=== PATIENT | female | born 1975 | race African-American/Black ===

== ENCOUNTER 2017-06-09 17:02 | Emergency (ER) | payer OTHER, MEDICAID, SELFPAY | END 2017-06-09 20:28 | disposition home or self-care (01) | PROVIDERS: Emergency Provider Internal Medicine; Family Provider Family Medicine; PCP Family Medicine; Visit Provider Internal Medicine | DX: R51 Headache (principal); E87.6 Hypokalemia; G50.0 Trigeminal neuralgia | CPT/HCPCS: 36415; 70450; 80053; 85025; 86140; 93005; 93010; 99058; 99284 ==

== ENCOUNTER 2017-07-23 00:34 | Emergency (ER) | payer OTHER, MEDICAID, SELFPAY ==
[2017-07-23 00:53] VITALS: BP 157/10; PULSE 96; RESP 18; TEMP 37.2; O2SAT 99; BMI 29.7
--- NOTE | 2017-07-23 01:05 | ED.EXTPRO ---
HPI - Extremity Problem General Chief complaint: Extremity Problem,Nontraumatic Stated complaint: Rt left pain/redness/pain sgy [id number] fever Time Seen by Provider: 07/23/17 00:39 Source: patient Mode of arrival: ambulatory Limitations: no limitations History of Present Illness HPI Narrative: Patient here for evaluation of right leg pain. She states that she had a biopsy performed on a ?mass? on her right thigh on the of this month by Dr. Weiss at [facility] in [place]. She does not know what was biopsied. She states she does not know whether was a bone biopsy or a muscle biopsy. She states that she was told that her doctors do not think that it is cancerous. She states that she has had pain in her right thigh since the procedure but it did get worse yesterday. She states she is taking ibuprofen and Tylenol. Did have pain medication for short time afterwards but is now out of that medicine. She states that she called the [facility] [place] who told her to come to the emergency department ?to get checked out ? Related Data Home Medications Medication Instructions Recorded Confirmed azithromycin [Zithromax] #0 01/08/16 oxycodone-acetaminophen [Percocet] #0 01/08/16 ibuprofen 800 mg PO TID PRN 07/23/17 07/23/17 Previous Rx's Medication Instructions Recorded lorazepam 0.5 mg PO SEE INSTRUCTIONS #1 tab 05/14/17 amlodipine 10 mg PO QDAY #30 tab 05/18/17 oxycodone-acetaminophen [Endocet] 1 tab PO Q4HP PRN #6 tab 06/09/17 potassium chloride 10 meq PO Q DAY #5 cap 06/09/17 Allergies Allergy/AdvReac Type Severity Reaction Status Date / Time PCN Allergy Mild Uncoded 07/23/17 01:11 Review of Systems Constitutional Denies chills, Denies fatigue and Reports fever(s) (?Low-grade fevers ?she does not have a thermometer at home) Cardiovascular Denies dyspnea and Denies dyspnea on exertion Respiratory Denies cough, Denies dyspnea, Denies dyspnea on exertion and Denies wheezing Musculoskeletal Comments: Right thigh pain Integumentary/Breasts Comments: Surgical wound right thigh Neurologic Comments: No numbness tingling right lower extremity Endocrine Denies fatigue Hematologic/Lymphatic Denies easy bruising Allergic/Immunologic Denies wheezing PFSH Surgical History Status post hysterectomy Family History Father Age: 62 Heart disease Mother Age: 62 Hypertension Grandmother Cancer Social History number of children: 2 household members: spouse and children pets and animals: No education level: college seatbelt use: always helmet use: Yes water heater temp set < 120 deg: Yes working smoke detector in home: Yes fire extinguisher in home: Yes Smoking Status: Never smoker alcohol intake: never substance use type: does not use caffeine: Yes (Rare) frequency: 1-2 times per week duration: 30-45 minutes/day additional social history: 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 Has surrounding bruising however no redness. No drainage. No signs of infection. Neuro Other: Sensation intact to light touch right lower extremity Extrem Other: Patient with soft thigh compartments. Is tender to palpation over the surgical site and over the anterior thigh. Course Orders Ordered: Discontinued Medications Oxycodone/Acetaminophen (Endocet 5/325 Prepack) 1 bottle MISC SEEINSTR ONE Stop: 07/23/17 01:12 Vital Signs - 8 hr 07/23/17 00:53 Temperature 99 F Pulse Rate 96 H Respiratory Rate 18 Blood Pressure 157/10 H Pulse Oximetry 99 MDM - Extremity (Nontraumatic) MDM Narrative Medical decision making narrative: Patient surgical site appears well. Appears appropriate for this point after a procedure. No signs of infection. Thigh compartments are soft. Patient states that she feels good that the site looks well. We did discuss her pain regimen. Will send home with a few pain pills for her to take at night. She is going to continue the ibuprofen and Tylenol during the day. She is instructed she needed to contact her operative provider tomorrow. She does have a follow-up with him on Wednesday of next week. She was given return precautions. She expressed understanding and agreement with plan Discharge Plan Departure Patient Disposition: Home, Self-Care Clinical Impression: Post-operative pain Instructions: DI for Postoperative Pain Activity Restrictions/Additional Instructions: Follow all postoperative instructions given to you by your surgeon. Call your surgeon's office tomorrow to discuss whether not they want to see you before your appointment on Wednesday. Take the medication likely discussed. Return to the emergency department for any new or worsening symptoms Prescriptions: No Action oxycodone-acetaminophen [Percocet] 5 MG/325 MG tablet Qty: 0 RF: 0 azithromycin [Zithromax] 250 MG tablet Qty: 0 RF: 0 lorazepam 0.5 MG tablet 0.5 mg PO SEE INSTRUCTIONS Qty: 1 RF: 0 amlodipine 10 MG tablet 10 mg PO QDAY Qty: 30 RF: 2 potassium chloride 10 MEQ capsule, extended release 10 meq PO Q DAY Qty: 5 RF: 0 oxycodone-acetaminophen [Endocet] 5 MG/325 MG tablet 1 tab PO Q4HP PRNQty: 6 RF: 0 ibuprofen 800 mg Tablet 800 mg PO TID PRN (Reason: Breakthrough Pain, Moderate) RF: 0
--- NOTE | 2017-07-23 01:10 | ED_ITS ---
HPI - Extremity Problem General Chief complaint: Extremity Problem,Nontraumatic Stated complaint: Rt left pain/redness/pain sgy [id number] fever Time Seen by Provider: 07/23/17 00:39 Source: patient Mode of arrival: ambulatory Limitations: no limitations History of Present Illness HPI Narrative: Patient here for evaluation of right leg pain. She states that she had a biopsy performed on a ?mass? on her right thigh on the of this month by Dr. Weiss at [facility] in [place]. She does not know what was biopsied. She states she does not know whether was a bone biopsy or a muscle biopsy. She states that she was told that her doctors do not think that it is cancerous. She states that she has had pain in her right thigh since the procedure but it did get worse yesterday. She states she is taking ibuprofen and Tylenol. Did have pain medication for short time afterwards but is now out of that medicine. She states that she called the [facility] who told her to come to the emergency department ?to get checked out ? Related Data Home Medications Medication Instructions Recorded Confirmed azithromycin [Zithromax] #0 01/08/16 oxycodone-acetaminophen [Percocet] #0 01/08/16 ibuprofen 800 mg PO TID PRN 07/23/17 07/23/17 Previous Rx's Medication Instructions Recorded lorazepam 0.5 mg PO SEE INSTRUCTIONS #1 tab 05/14/17 amlodipine 10 mg PO QDAY #30 tab 05/18/17 oxycodone-acetaminophen [Endocet] 1 tab PO Q4HP PRN #6 tab 06/09/17 potassium chloride 10 meq PO Q DAY #5 cap 06/09/17 Allergies Allergy/AdvReac Type Severity Reaction Status Date / Time PCN Allergy Mild Uncoded 07/23/17 01:11 Review of Systems Constitutional Denies chills, Denies fatigue and Reports fever(s) (?Low-grade fevers ?she does not have a thermometer at home) Cardiovascular Denies dyspnea and Denies dyspnea on exertion Respiratory Denies cough, Denies dyspnea, Denies dyspnea on exertion and Denies wheezing Musculoskeletal Comments: Right thigh pain Integumentary/Breasts Comments: Surgical wound right thigh Neurologic Comments: No numbness tingling right lower extremity Endocrine Denies fatigue Hematologic/Lymphatic Denies easy bruising Allergic/Immunologic Denies wheezing PFSH Surgical History Status post hysterectomy Family History Father Age: 62 Heart disease Mother Age: 62 Hypertension Grandmother Cancer Social History number of children: 2 household members: spouse and children pets and animals: No education level: college seatbelt use: always helmet use: Yes water heater temp set < 120 deg: Yes working smoke detector in home: Yes fire extinguisher in home: Yes Smoking Status: Never smoker alcohol intake: never substance use type: does not use caffeine: Yes (Rare) frequency: 1-2 times per week duration: 30-45 minutes/day additional social history: 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 Has surrounding bruising however no redness. No drainage. No signs of infection. Neuro Other: Sensation intact to light touch right lower extremity Extrem Other: Patient with soft thigh compartments. Is tender to palpation over the surgical site and over the anterior thigh. Course Orders Ordered: Discontinued Medications Oxycodone/Acetaminophen (Endocet 5/325 Prepack) 1 bottle MISC SEEINSTR ONE Stop: 07/23/17 01:12 Vital Signs - 8 hr 07/23/17 00:53 Temperature 99 F Pulse Rate 96 H Respiratory Rate 18 Blood Pressure 157/10 H Pulse Oximetry 99 MDM - Extremity (Nontraumatic) MDM Narrative Medical decision making narrative: Patient surgical site appears well. Appears appropriate for this point after a procedure. No signs of infection. Thigh compartments are soft. Patient states that she feels good that the site looks well. We did discuss her pain regimen. Will send home with a few pain pills for her to take at night. She is going to continue the ibuprofen and Tylenol during the day. She is instructed she needed to contact her operative provider tomorrow. She does have a follow-up with him on Wednesday of next week. She was given return precautions. She expressed understanding and agreement with plan Discharge Plan Departure Patient Disposition: Home, Self-Care Clinical Impression: Post-operative pain Instructions: DI for Postoperative Pain Activity Restrictions/Additional Instructions: Follow all postoperative instructions given to you by your surgeon. Call your surgeon's office tomorrow to discuss whether not they want to see you before your appointment on Wednesday. Take the medication likely discussed. Return to the emergency department for any new or worsening symptoms Prescriptions: No Action oxycodone-acetaminophen [Percocet] 5 MG/325 MG tablet Qty: 0 RF: 0 azithromycin [Zithromax] 250 MG tablet Qty: 0 RF: 0 lorazepam 0.5 MG tablet 0.5 mg PO SEE INSTRUCTIONS Qty: 1 RF: 0 amlodipine 10 MG tablet 10 mg PO QDAY Qty: 30 RF: 2 potassium chloride 10 MEQ capsule, extended release 10 meq PO Q DAY Qty: 5 RF: 0 oxycodone-acetaminophen [Endocet] 5 MG/325 MG tablet 1 tab PO Q4HP PRNQty: 6 RF: 0 ibuprofen 800 mg Tablet 800 mg PO TID PRN (Reason: Breakthrough Pain, Moderate) RF: 0
[2017-07-23] MEDS: OXYCODONE/APAP 5/325 PREPACK 1 BOTTLE MISC (01:19)
== END 2017-07-23 01:26 | disposition home or self-care (01) ==
LOC: ED 01:25
PROVIDERS: Emergency Provider Emergency Medicine; Family Provider Family Medicine; PCP Family Medicine
DX: G89.18 Other acute postprocedural pain (principal)
CPT/HCPCS: 99282

== ENCOUNTER 2018-02-22 18:25 | Emergency (ER) | payer OTHER, SELFPAY ==
--- NOTE | 2018-02-22 18:32 | ED.FEMALEGU ---
HPI - Female Genitourinary <YOKASTA Ortiz - Last Filed: 02/22/18 22:04> General Chief complaint: Urogenital-Female Stated complaint: URINE IS RED SURGERY ON RT LEG REDNESS FEVER Time Seen by Provider: 02/22/18 18:31 Source: patient Mode of arrival: ambulatory Limitations: no limitations History of Present Illness HPI Narrative: 42-year-old female with history of hypokalemia and is a nonsmoker here for complaint of a fever with blood in her urine over the past couple of days. She recently had surgery to her right thigh area to have a mass pulled out of the thigh. This was on the 10 of February. She states that she has not received results of what the mass was to her right thigh. Surgery was completed at the [facility]. She reports that she pulled the drain out 2 days ago to the area. She reports that there is some redness to the area she denies any discharge from the area. Positive p.o. intake. No nausea or vomiting. She denies any trauma to the area. She denies any abdominal pain. No flank pain. She denies any urinary symptoms. Related Data Home Medications Medication Instructions Recorded Confirmed azithromycin [Zithromax] #0 01/08/16 oxycodone-acetaminophen [Percocet] #0 01/08/16 ibuprofen 800 mg PO TID PRN 07/23/17 07/23/17 Previous Rx's Medication Instructions Recorded lorazepam 0.5 mg PO SEE INSTRUCTIONS #1 tab 05/14/17 oxycodone-acetaminophen [Endocet] 1 tab PO Q4HP PRN #6 tab 06/09/17 potassium chloride 10 meq PO Q DAY #5 cap 06/09/17 amlodipine 10 mg tablet 10 mg PO QDAY #30 tab 11/04/17 sulfamethoxazole-trimethoprim 1 tab PO BID #13 tab 02/22/18 Allergies Allergy/AdvReac Type Severity Reaction Status Date / Time PCN Allergy Mild Uncoded 07/23/17 01:11 Review of Systems <YOKASTA Ortiz - Last Filed: 02/22/18 22:04> Constitutional Denies chills, Reports fever(s), Denies lethargy and Denies weakness Eyes Denies change in vision, Denies eye discharge, Denies irritation and Denies loss of vision ENT Ears, Nose, Mouth, and Throat: Denies change in voice, Denies neck pain and Denies sore throat Cardiovascular Denies chest pain, Denies irregular heart rhythm, Denies lightheadedness, Denies palpitations, Denies dyspnea, Denies dyspnea on exertion and Denies orthopnea Respiratory Denies cough, Denies dyspnea, Denies dyspnea on exertion and Denies wheezing Gastrointestinal Gastrointestinal: Denies abdominal pain, Denies change in bowel habits, Denies diarrhea, Denies nausea and Denies vomiting Genitourinary Reports hematuria Musculoskeletal Denies neck pain Integumentary/Breasts Denies pruritus, Denies erythema, Denies rash and Denies wounds Neurologic Denies confusion, Denies loss of vision and Denies weakness Psychiatric Denies anxiety, Denies confusion, Denies depression, Denies homicidal ideation and Denies suicidal ideation Endocrine Denies palpitations Hematologic/Lymphatic Denies easy bruising Allergic/Immunologic Denies wheezing Exam <YOKASTA Ortiz - Last Filed: 02/22/18 22:04> Initial Vital Signs Initial Vital Signs: Vital Signs Temperature 97.3 F L 02/22/18 18:42 Pulse Rate 94 H 02/22/18 18:42 Respiratory Rate 14 02/22/18 18:42 Blood Pressure 134/84 02/22/18 18:42 Pulse Oximetry 100 02/22/18 18:42 Const General: cooperative and well developed Nutritional Appearance: well nourished Orientation: alert, awake, oriented x3 and not confused [facility] Mouth: oral mucosae normal and moist mucous membranes Eyes Conjunctivae: conjunctivae normal Sclera: sclerae normal Pupils: PERRL EOM: EOM intact bilaterally Resp Effort & Inspection: normal respiratory effort, able to speak in complete sentences, no respiratory distress and no use of accessory muscles Auscultation: clear to auscultation bilaterally, no rales, no rhonchi and no wheezes Cardio Rate: regular rate Rhythm: regular rhythm Heart Sounds: no click, no gallops, no murmurs and no rubs Pulses: normal peripheral pulses GI Inspection: non-distended Palpation: soft, no hepatosplenomegaly, No guarding, No pulsatile mass and No tender Auscultation: normal bowel sounds General: No CVA tenderness Skin General: no rashes or lesions noted, No jaundice and No petechiae Neuro General: alert, oriented x3, gait normal and no focal motor deficits Speech: speech normal Extrem Other: Surgical site to the right thigh with some a erythema to the area of the drain. Incision site was sutures does not appear to be infected. No purulent drainage. No fluctuance no induration. No hematomas. Distal sensation is intact. Distal range of motion is intact. Distal pulses are intact. Approximately 12 cm of erythema to the area around the drain site. Drain is removed <Nehemiah Herndon DO - Last Filed: 02/23/18 01:06> Initial Vital Signs Initial Vital Signs: Vital Signs Temperature 97.3 F L 02/22/18 18:42 Pulse Rate 94 H 02/22/18 18:42 Respiratory Rate 14 02/22/18 18:42 Blood Pressure 134/84 02/22/18 18:42 Pulse Oximetry 100 02/22/18 18:42 Course <YOKASTA Ortiz - Last Filed: 02/22/18 22:04> Orders Ordered: ED Orders 02/22/18 18:30 Ictotest Urine Stat Urinalysis and Microscopic Stat 02/22/18 18:57 XR chest 1V Stat 02/22/18 19:15 Complete Blood Count AUTO DIFF Stat Comprehensive Metabolic Panel Stat Lactate (Lactic Acid) Stat Procalcitonin Stat 02/22/18 20:03 Blood Culture Stat Discontinued Medications Sodium Chloride (Normal Saline 0.9%) 1,000 mls @ 1,000 mls/hr IV BOLUS ONE Stop: 02/22/18 19:57 Last Infusion: 02/22/18 21:01 Dose: 0 mls/hr Admin: 02/22/18 19:22 Dose: 1,000 mls/hr Potassium Chloride (Klor-Con M20) 40 meq PO NOW ONE Stop: 02/22/18 20:42 Last Admin: 02/22/18 21:00 Dose: 40 meq Trimethoprim/Sulfamethoxazole (Bactrim Ds) 1 tab PO NOW ONE Stop: 02/22/18 20:33 Last Admin: 02/22/18 21:00 Dose: 1 tab Vital Signs - 8 hr 02/22/18 18:42 02/22/18 21:25 Temperature 97.3 F L Pulse Rate 94 H 98 H Respiratory Rate 14 20 Blood Pressure 134/84 119/70 Pulse Oximetry 100 98 <Nehemiah Herndon DO - Last Filed: 02/23/18 01:06> Orders Ordered: ED Orders 02/22/18 18:30 Ictotest Urine Stat Urinalysis and Microscopic Stat 02/22/18 18:57 XR chest 1V Stat 02/22/18 19:15 Complete Blood Count AUTO DIFF Stat Comprehensive Metabolic Panel Stat Lactate (Lactic Acid) Stat Procalcitonin Stat 02/22/18 20:03 Blood Culture Stat Discontinued Medications Sodium Chloride (Normal Saline 0.9%) 1,000 mls @ 1,000 mls/hr IV BOLUS ONE Stop: 02/22/18 19:57 Last Infusion: 02/22/18 21:01 Dose: 0 mls/hr Admin: 02/22/18 19:22 Dose: 1,000 mls/hr Potassium Chloride (Klor-Con M20) 40 meq PO NOW ONE Stop: 02/22/18 20:42 Last Admin: 02/22/18 21:00 Dose: 40 meq Trimethoprim/Sulfamethoxazole (Bactrim Ds) 1 tab PO NOW ONE Stop: 02/22/18 20:33 Last Admin: 02/22/18 21:00 Dose: 1 tab Vital Signs - 8 hr 02/22/18 18:42 02/22/18 21:25 Temperature 97.3 F L Pulse Rate 94 H 98 H Respiratory Rate 14 20 Blood Pressure 134/84 119/70 Pulse Oximetry 100 98 MDM - Female Genitourinary <YOKASTA Ortiz - Last Filed: 02/22/18 22:04> Lab Data Result diagrams: 02/22/18 19:15 02/22/18 19:15 Lab Results 02/22/18 02/22/18 02/22/18 Range/Units 18:30 19:15 19:15 WBC 22.5 H (4.5-11.0) X10^3/uL RBC 3.64 L (4.0-5.2) X10^6/uL Hgb 11.1 L (12.0-16.0) g/dL Hct 33.3 L (36-46) % MCV 91.3 (80-100) fL MCH 30.4 (26-34) PG MCHC 33.3 (30-36) % RDW 14.5 (11.6-14.8) % Plt Count 247 (150-400) X10^3/uL Neut % (Auto) 92.9 H (50-75) % Lymph % (Auto) 3.1 L (25-40) % [place] % (Auto) 2.3 L (3-14) % Eos % (Auto) 1.5 L (2-4) % Baso % (Auto) 0.2 (0-2) % Neut # (Auto) 59574 H (5929-8877) /uL Sodium (137-145) mmol/L Potassium (3.4-5.1) mmol/L Chloride (98-107) mmol/L Carbon Dioxide (22-32) mmol/L BUN (7-17) mg/dL Creatinine (0.52-1.04) mg/dL Estimated GFR (>60) mL/min BUN/Creatinine Ratio (6-22) Glucose (70-100) mg/dL Lactate (0.7-2.1) mmol/L Calcium (8.4-10.2) mg/dL Total Bilirubin (0.2-1.3) mg/dL AST (14-36) IU/L ALT (9-52) IU/L Alkaline Phosphatase (38-126) U/L Total Protein (6.3-8.2) g/dL Albumin (3.5-5.0) g/dL Globulin (1.7-4.1) g/dL Albumin/Globulin Ratio (1.0-2.8) Procalcitonin 0.68 H (<0.5) ng/mL Urine Color [place] Urine Appearance Sl cloudy Urine pH 5.5 (4.5-8.0) Ur Specific [place] 1.020 (1.000-1.035) Urine Protein 1+ H (Negative) Urine Glucose (UA) Negative (Negative) g/dL Urine Ketones Negative (NEGATIVE) Urine Occult Blood 1+ H (Negative) Urine Nitrate Negative (Negative) Urine Bilirubin 1+ H (NEGATIVE) Urine Ictotest Negative (Negative) Urine Urobilinogen 1.0 (0.2) E.U./dL Ur Leukocyte Esterase Negative (NEGATIVE) Urine RBC 1-5/hpf (0-5/HPF) Urine WBC 1-5/hpf (0-5/HPF) Ur Squamous Epith Cells 10-30 /hpf H Urine Bacteria Many (>30) H (None) Ur Culture Indicated? Cult not indicated Micro UA Comment Not Reportable 02/22/18 02/22/18 Range/Units 19:15 19:15 WBC (4.5-11.0) X10^3/uL RBC (4.0-5.2) X10^6/uL Hgb (12.0-16.0) g/dL Hct (36-46) % MCV (80-100) fL MCH (26-34) PG MCHC (30-36) % RDW (11.6-14.8) % Plt Count (150-400) X10^3/uL Neut % (Auto) (50-75) % Lymph % (Auto) (25-40) % [place] % (Auto) (3-14) % Eos % (Auto) (2-4) % Baso % (Auto) (0-2) % Neut # (Auto) (0932-6550) /uL Sodium 140 (137-145) mmol/L Potassium 2.9 L (3.4-5.1) mmol/L Chloride 101 (98-107) mmol/L Carbon Dioxide 27 (22-32) mmol/L BUN 12 (7-17) mg/dL Creatinine 1.10 H (0.52-1.04) mg/dL Estimated GFR 54.0 L (>60) mL/min BUN/Creatinine Ratio 10.9 (6-22) Glucose 120 H (70-100) mg/dL Lactate 1.1 (0.7-2.1) mmol/L Calcium 8.9 (8.4-10.2) mg/dL Total Bilirubin 1.2 (0.2-1.3) mg/dL AST 15 (14-36) IU/L ALT 17 (9-52) IU/L Alkaline Phosphatase 93 (38-126) U/L Total Protein 7.4 (6.3-8.2) g/dL Albumin 4.1 (3.5-5.0) g/dL Globulin 3.3 (1.7-4.1) g/dL Albumin/Globulin Ratio 1.2 (1.0-2.8) Procalcitonin (<0.5) ng/mL Urine Color Urine Appearance Urine pH (4.5-8.0) Ur Specific [place] (1.000-1.035) Urine Protein (Negative) Urine Glucose (UA) (Negative) g/dL Urine Ketones (NEGATIVE) Urine Occult Blood (Negative) Urine Nitrate (Negative) Urine Bilirubin (NEGATIVE) Urine Ictotest (Negative) Urine Urobilinogen (0.2) E.U./dL Ur Leukocyte Esterase (NEGATIVE) Urine RBC (0-5/HPF) Urine WBC (0-5/HPF) Ur Squamous Epith Cells Urine Bacteria (None) Ur Culture Indicated? Micro UA Comment MDM Narrative Medical decision making narrative: [place] [address]. There is also mild anemia with H&H of 11 and 33. Chem panel shows mild hypokalemia of 2.9. GFR was mildly low at 54 and creatinine was 1.1 procalcitonin was elevated at 0.68. Lactate was negative. Blood cultures are obtained and are pending. Urinalysis shows +1 occult blood and bilirubin of 0 simple appears to be contaminated with 10-30 of squamous cell epithelial cells. Nitrates were negative. Discussed case with Dr. Wilkinson surgery at [facility] who will follow with patient later this week. She is placed on Septra DS to cover for infection cellulitis to the incisional site. Septra DS is also to cover for possible starting urinary tract infection. She is encouraged to follow up with her primary care provider later this week for referral to Urology for further evaluation of her hematuria. [id number] Tylenol or Motrin as needed for discomfort and fever. Return emergency room for any worsening symptoms. <Nehemiah Herndon DO - Last Filed: 02/23/18 01:06> Lab Data Lab Results 02/22/18 02/22/18 02/22/18 Range/Units 18:30 19:15 19:15 WBC 22.5 H (4.5-11.0) X10^3/uL RBC 3.64 L (4.0-5.2) X10^6/uL Hgb 11.1 L (12.0-16.0) g/dL Hct 33.3 L (36-46) % MCV 91.3 (80-100) fL MCH 30.4 (26-34) PG MCHC 33.3 (30-36) % RDW 14.5 (11.6-14.8) % Plt Count 247 (150-400) X10^3/uL Neut % (Auto) 92.9 H (50-75) % Lymph % (Auto) 3.1 L (25-40) % [place] % (Auto) 2.3 L (3-14) % Eos % (Auto) 1.5 L (2-4) % Baso % (Auto) 0.2 (0-2) % Neut # (Auto) 06220 H (7855-8796) /uL Sodium (137-145) mmol/L Potassium (3.4-5.1) mmol/L Chloride (98-107) mmol/L Carbon Dioxide (22-32) mmol/L BUN (7-17) mg/dL Creatinine (0.52-1.04) mg/dL Estimated GFR (>60) mL/min BUN/Creatinine Ratio (6-22) Glucose (70-100) mg/dL Lactate (0.7-2.1) mmol/L Calcium (8.4-10.2) mg/dL Total Bilirubin (0.2-1.3) mg/dL AST (14-36) IU/L ALT (9-52) IU/L Alkaline Phosphatase (38-126) U/L Total Protein (6.3-8.2) g/dL Albumin (3.5-5.0) g/dL Globulin (1.7-4.1) g/dL Albumin/Globulin Ratio (1.0-2.8) Procalcitonin 0.68 H (<0.5) ng/mL Urine Color [place] Urine Appearance Sl cloudy Urine pH 5.5 (4.5-8.0) Ur Specific [place] 1.020 (1.000-1.035) Urine Protein 1+ H (Negative) Urine Glucose (UA) Negative (Negative) g/dL Urine Ketones Negative (NEGATIVE) Urine Occult Blood 1+ H (Negative) Urine Nitrate Negative (Negative) Urine Bilirubin 1+ H (NEGATIVE) Urine Ictotest Negative (Negative) Urine Urobilinogen 1.0 (0.2) E.U./dL Ur Leukocyte Esterase Negative (NEGATIVE) Urine RBC 1-5/hpf (0-5/HPF) Urine WBC 1-5/hpf (0-5/HPF) Ur Squamous Epith Cells 10-30 /hpf H Urine Bacteria Many (>30) H (None) Ur Culture Indicated? Cult not indicated Micro UA Comment Not Reportable 02/22/18 02/22/18 Range/Units 19:15 19:15 WBC (4.5-11.0) X10^3/uL RBC (4.0-5.2) X10^6/uL Hgb (12.0-16.0) g/dL Hct (36-46) % MCV (80-100) fL MCH (26-34) PG MCHC (30-36) % RDW (11.6-14.8) % Plt Count (150-400) X10^3/uL Neut % (Auto) (50-75) % Lymph % (Auto) (25-40) % [place] % (Auto) (3-14) % Eos % (Auto) (2-4) % Baso % (Auto) (0-2) % Neut # (Auto) (9642-4489) /uL Sodium 140 (137-145) mmol/L Potassium 2.9 L (3.4-5.1) mmol/L Chloride 101 (98-107) mmol/L Carbon Dioxide 27 (22-32) mmol/L BUN 12 (7-17) mg/dL Creatinine 1.10 H (0.52-1.04) mg/dL Estimated GFR 54.0 L (>60) mL/min BUN/Creatinine Ratio 10.9 (6-22) Glucose 120 H (70-100) mg/dL Lactate 1.1 (0.7-2.1) mmol/L Calcium 8.9 (8.4-10.2) mg/dL Total Bilirubin 1.2 (0.2-1.3) mg/dL AST 15 (14-36) IU/L ALT 17 (9-52) IU/L Alkaline Phosphatase 93 (38-126) U/L Total Protein 7.4 (6.3-8.2) g/dL Albumin 4.1 (3.5-5.0) g/dL Globulin 3.3 (1.7-4.1) g/dL Albumin/Globulin Ratio 1.2 (1.0-2.8) Procalcitonin (<0.5) ng/mL Urine Color Urine Appearance Urine pH (4.5-8.0) Ur Specific [place] (1.000-1.035) Urine Protein (Negative) Urine Glucose (UA) (Negative) g/dL Urine Ketones (NEGATIVE) Urine Occult Blood (Negative) Urine Nitrate (Negative) Urine Bilirubin (NEGATIVE) Urine Ictotest (Negative) Urine Urobilinogen (0.2) E.U./dL Ur Leukocyte Esterase (NEGATIVE) Urine RBC (0-5/HPF) Urine WBC (0-5/HPF) Ur Squamous Epith Cells Urine Bacteria (None) Ur Culture Indicated? Micro UA Comment Discharge Plan Departure Patient Disposition: Home Clinical Impression: Cellulitis of leg, right Discharge Date/Time: 02/22/18 21:25 Interventions: ED Discharge Assessment Last Done: 02/22/18 21:25 Instructions: DI for Cellulitis -- Adult Activity Restrictions/Additional Instructions: Laboratory results today show elevated white count which could be an indication of infection. Potassium was also low today at 2.9. With redness to the drainage site area of her incision year placed on antibiotic called Septra use as directed. Plenty of fluids. [id number] Tylenol or Motrin as needed for any discomfort. Follow up with Dr. Wilkinson at [facility] call the office tomorrow to schedule follow-up appointment here in the next few days. Follow up with her primary care provider this week for evaluation and referral to urology if continued blood in your urine. For any worsening symptoms return to the emergency room. Prescriptions: New sulfamethoxazole-trimethoprim 800-160 mg tablet 1 tab PO BID Qty: 13 RF: 0 No Action oxycodone-acetaminophen [Percocet] 5 MG/325 MG tablet Qty: 0 RF: 0 azithromycin [Zithromax] 250 MG tablet Qty: 0 RF: 0 lorazepam 0.5 MG tablet 0.5 mg PO SEE INSTRUCTIONS Qty: 1 RF: 0 potassium chloride 10 MEQ capsule, extended release 10 meq PO Q DAY Qty: 5 RF: 0 oxycodone-acetaminophen [Endocet] 5 MG/325 MG tablet 1 tab PO Q4HP PRNQty: 6 RF: 0 amlodipine 10 mg tablet 10 mg PO QDAY Qty: 30 RF: 2 ibuprofen 800 mg Tablet 800 mg PO TID PRN (Reason: Breakthrough Pain, Moderate) RF: 0 Referrals: Nory Templeton MD [Primary Care Provider] - <Nehemiah Herndon DO - Last Filed: 02/23/18 01:06> Cosign ED Attending Teresaature Attestation: I was immediately available in the department for consultation. Documentation has been reviewed. I agree with assessment and plan.
[2018-02-22 18:42] VITALS: BP 134/84; PULSE 94; RESP 14; TEMP 36.3; O2SAT 100
--- NOTE | 2018-02-22 18:57 | DI.RAD.S_ITS ---
PROCEDURE: XR CHEST 1V INDICATIONS: Recent surgery right leg now fever TECHNIQUE: One view of the chest was acquired. COMPARISON: None. FINDINGS: Surgical changes and devices: None. Lungs and pleura: No pleural effusions or pneumothorax. Lungs are clear. Mediastinum: Mediastinal contours appear normal. Heart size is normal. Bones and chest wall: No suspicious bony lesions. Overlying soft tissues appear unremarkable. IMPRESSION: No acute disease Dictated by: Pradip Watson M.D. on 02/22/2018 at 20:02 Approved by: Pradip Watson M.D. on 02/22/2018 at 20:03
[2018-02-22 19:03] LABS: Appearance Urine UA SL CLOUDY; Bilirubin Urine UA 1+ (NEGATIVE); Color Urine UA ORANGE; Glucose Urine UA NEGATIVE (Negative); Ketones Urine UA NEGATIVE (NEGATIVE); Leukocyte Esterase Urine UA NEGATIVE (NEGATIVE); Nitrite Urine UA NEGATIVE (Negative); Occult Blood Urine UA 1+ (Negative); Protein Urine UA 1+ (Negative); pH Urine UA 5.5 (4.5-8.0)
[2018-02-22 19:16] LABS: Bacteria Urine Many (>30); Culture Indicated Urine Cult Not Indicated; Ictotest Urine Negative (Negative); RBC Urine 1-5/HPF (0-5/HPF); Squamous Epithelial Cell Urine 10-30 /HPF; WBC Urine 1-5/HPF (0-5/HPF)
[2018-02-22] MEDS: SODIUM CHLORIDE 0.9% 1,000 ML 1000 ML IV (19:22)
--- NOTE | 2018-02-22 19:33 | PC.NURSE ---
Patient with recent mass removal on right thigh done on 02/10. Drain was removed on tuesday 02/20 when she noticed redness to skin extending outward from where the drain had been. Redness persists along with fevers and now nausea.
--- NOTE | 2018-02-22 19:34 | PC.NURSE ---
Redness to thigh outlined with marking pen.
[2018-02-22 19:39] LABS: Lactate (Lactic Acid) 1.1 mmol/L (0.7-2.1)
[2018-02-22 19:40] LABS: Add Manual Diff / Slide Review NO; Basophils Percent Auto 0.2 % (0-2); Eosinophils Percent Auto 1.5 % (2-4); Hematocrit 33.3 % (36-46); Hemoglobin 11.1 g/dL (12.0-16.0); Lymphocytes Percent Auto 3.1 % (25-40); Mean Corpuscular HGB Conc 33.3 % (30-36); Mean Corpuscular Hemoglobin 30.4 PG (26-34); Mean Corpuscular Volume 91.3 fL (80-100); Monocytes Percent Auto 2.3 % (3-14); Neutrophils Absolute Auto 20900 /uL (1500-7000); Neutrophils Percent Auto 92.9 % (50-75); Platelet Count 247 X10^3/uL (150-400); Red Blood Cell Count 3.64 X10^6/uL (4.0-5.2); Red Cell Distribution Width 14.5 % (11.6-14.8); White Blood Cell Count 22.5 X10^3/uL (4.5-11.0)
[2018-02-22 19:44] LABS: Alanine Aminotransferase 17 IU/L (9-52); Albumin 4.1 g/dL (3.5-5.0); Albumin Globulin Ratio 1.2 (1.0-2.8); Alkaline Phosphatase 93 U/L (38-126); Aspartate Aminotransferase 15 IU/L (14-36); BUN Creatinine Ratio 10.9 (6-22); Bilirubin Total 1.2 mg/dL (0.2-1.3); Blood Urea Nitrogen 12 mg/dL (7-17); Calcium 8.9 mg/dL (8.4-10.2); Carbon Dioxide 27 mmol/L (22-32); Chloride 101 mmol/L (98-107); Globulin 3.3 g/dL (1.7-4.1); Glucose 120 mg/dL (70-100); HEMOLYSIS < 15 (0-50); Potassium 2.9 mmol/L (3.4-5.1); Sodium 140 mmol/L (137-145); Total Protein 7.4 g/dL (6.3-8.2)
[2018-02-22 20:00] LABS: Procalcitonin 0.68 ng/mL (<0.5)
[2018-02-22] MEDS: TRIMETH/SULFA 160/800 (DS) TABLET 1 TAB PO (21:00)
[2018-02-22] MEDS: POTASSIUM CHLORIDE 20 MEQ TAB 40 MEQ PO (21:00)
[2018-02-22 21:25] VITALS: BP 119/70; PULSE 98; RESP 20; O2SAT 98
== END 2018-02-22 21:25 | disposition home or self-care (01) ==
PROVIDERS: Emergency Provider Nurse Practitioner Family; Family Provider Family Medicine; PCP Family Medicine
DX: L03.115 Cellulitis of right lower limb (principal)
CPT/HCPCS: 36415; 36591; 71045; 80053; 81001; 83605; 84145; 85025; 87040; 96360; 96361; 99283; 99284